=== PATIENT | female | born 1950 | race Caucasian/White ===

== ENCOUNTER 2023-12-05 13:25 | Outpatient (CLI) | payer MEDICARE, OTHER ==
[~2023-12-05] VITALS: Ht 162.6 cm; Wt 100.0 kg
[~2023-12-05 13:25] MED LIST: ALPHAGAN OPHTH D5 ML OU; AZOPT 10 ML10 ML OU; B COMPLEX #11 TA1 PO; CLARITIN 1010 MG/TAB PO; COMPLETE MULTI1 TAB PO; CRESTOR5 MG PO; DESYREL 50MG50 MG PO; DULERA1 AR1 IH; DULERA1 ARO IH; ICAPS AREDS2 S1 EACH PO; MASON NATURAL2000 IU PO; PEPCID AC20 MG PO; RHOPRESSA2.5 ML OU; ROXICODONE 55 MG/TAB PO; TRUSOPT OCUMETE10 ML OU; TUMS SMOOTHIES750 M1 PO; VENTOLIN0.09 MG IH; VERAPAMIL 440 MG/TAB PO; XALATAN EYE DROPS OU
[2023-12-05 14:08] VITALS: BP 104/77; PULSE 70; TEMP 97.7
== END 2023-12-05 14:37 | disposition home or self-care (01) ==
LOC: EUO 13:25
DX: M81.0 Age-related osteoporosis without current pathological fracture (principal)
CPT/HCPCS: J3489